=== PATIENT | male | born 1965 | race Caucasian/White ===

== ENCOUNTER 2019-01-07 08:20 | Day surgery (SDC) | payer MEDICAID ==
[~2019-01-07] VITALS: Ht 180.3 cm; Wt 90.7 kg
[2019-01-07] MEDS ORDERED: ONDANSETRON HCL 4 MG/2 ML VIAL IVP ONE (11:05)
[2019-01-07] MEDS ORDERED: LR 1,000 ML IV.SOLN IV ONE (11:05)
[2019-01-07] MEDS ORDERED: NS 1000 ML IV.SOLN IV ONE (11:05)
[2019-01-07] MEDS ORDERED: ROCURONIUM BROMIDE 10 MG/ML (ZEMURON) IV ONE (11:05)
[2019-01-07] MEDS ORDERED: BACITRACIN ZINC 15 GM TOPICAL OINTMENT TP ONE (11:05)
[2019-01-07] MEDS ORDERED: LIDOCAINE/EPI 1% 1:100000 20 ML VIAL INJ ONE (11:05)
[2019-01-07] MEDS ORDERED: EPINEPHrine 1 MG/ML AMP IV ONE (11:05)
[2019-01-07] MEDS ORDERED: DEXAMETHASONE SOD PHOSPHATE 4 MG/ML VIAL IVP ONE (11:05)
[2019-01-07] MEDS ORDERED: WATER FOR IRRIGATION,STERILE 1,000 ML IRRIG.SOLN IR ONE (11:05)
[2019-01-07] MEDS ORDERED: PROPOFOL 200MG/ 20ML VIAL (DIPRIVAN) IV ONE (11:05)
[2019-01-07] MEDS ORDERED: fentaNYL CITRATE 250 MCG/5 ML AMP IV ONE (11:05)
[2019-01-07] MEDS ORDERED: MIDAZOLAM HCL 5 MG/5 ML VIAL IVP ONE (11:05)
[2019-01-07] MEDS ORDERED: SEVOFLURANE 15 MIN GAS INH ONE (11:05)
[2019-01-07] MEDS ORDERED: LR 1,000 ML IV SCH (12:20)
[2019-01-07] MEDS ORDERED: MORPHINE 4 MG/ML INJ. SYRINGE IVP PRN ×3 (12:30)
[2019-01-07] MEDS ORDERED: ONDANSETRON HCL 4 MG/2 ML VIAL IVP PRN (12:30)
[2019-01-07 20:16] VITALS: BP_SYST 130
== END 2019-01-07 16:15 | disposition home or self-care (01) ==
LOC: SMU 08:20 → SDS 08:20 → EDUNIT# 11:15 → SDS 16:15
PROVIDERS: ATTEND Otolaryngology
DX: J34.89 Other specified disorders of nose and nasal sinuses (principal); J33.9 Nasal polyp, unspecified; J34.2 Deviated nasal septum; J32.9 Chronic sinusitis, unspecified; M19.90 Unspecified osteoarthritis, unspecified site; F17.200 Nicotine dependence, unspecified, uncomplicated
CPT/HCPCS: 30140; 30520; 31295; 31298; 87070 ×2; 87075; 87101; 87186; 88304; 88311; C1726; J0171; J1100; J2250; J2405; J2704; J3010; J7030; J7120; 88305